=== PATIENT | female | born 1940 | race Caucasian/White ===

== ENCOUNTER 2019-07-13 12:00 | Outpatient (CLI) | payer MEDICARE, OTHER, SELFPAY ==
--- NOTE | ~2019-07-13 | US_ITS ---
US venous doppler [facility] DATE: 07/13/2019 12:50 INDICATION: Right lower leg pain TECHNIQUE: Real-time and color flow imaging and Doppler analysis of the veins of both lower extremiti es COMPARISON: None FINDINGS: The greater saphenous veins are patent. There is spontaneous and phasic flow and normal aug mentation and color flow signal and normal compression of the deep veins of both lower extremities. IMPRESSION: Negative; no evidence of deep venous thrombosis Reviewed, dictated and finalized at Location A. Reviewed, dictated and finalized at location B.
--- NOTE | ~2019-07-13 | CT_ITS ---
EXAMINATION: CTA chest PE protocol EXAM DATE: 07/13/2019 17:56 INDICATION: Tachycardia, right lower leg pain. TECHNIQUE: Spiral CTA of the chest (pulmonary arteries) was performed with 100 cc Omnipaque 350 intr avenous contrast injection. Images were acquired during the pulmonary arterial phase. Coronal maxi mum intensity projection 3D-reconstructions were created by the technologist on dedicated workstation . Axial, coronal and sagittal reformatted images were reviewed. The dose-length product (DLP) for t his examination was 837.43 mGy-cm. The exposure was tailored according to patient size (auto mA exp osure control), and iterative reconstruction (ASIR) was used as additional dose reduction technique. There is no prior study for comparison. FINDINGS: Pulmonary arteries are well opacified and without intraluminal filling defects. No thora cic aortic dissection. The lungs are clear. There are no pleural or pericardial effusions. Trach eobronchial tree is patent. There is no mediastinal, hilar or axillary lymphadenopathy. There is no pneumothorax. Heart normal in size. There is mild coronary arterial calcification, arterial sc lerosis. There is a cystic pancreatic tail mass measuring 1.6 cm. No definite enhancing solid component. The d ifferential diagnosis includes intraductal papillary mucinous neoplasm (IPMN), mucinous cystic neopla sm (MCN), pseudocyst, and the less common serous cystadenoma and neuroendocrine tumor. There is mode rate thoracic spondylosis without osteoblastic or osteolytic lesions identified. IMPRESSION: 1. No acute cardiopulmonary findings. 2. Pancreatic tail cystic mass; six-month follow-up abdomen CT or MRI with contrast recommended. Reviewed, dictated and finalized at location A. IMPRESSION: 1. No acute cardiopulmonary findings. 2. Pancreatic tail cystic mass; six-month follow-up abdomen CT or MRI with con trast recommended.
[2019-07-13 17:43] LABS: Estimated Glomerular Filt Rate > 60
== END 2019-07-13 12:01 | disposition home or self-care (01) ==
PROVIDERS: Visit Provider Student in an Organized Health Care Education/Training Program
DX: M79.661 Pain in right lower leg (principal); R00.0 Tachycardia, unspecified; Z92.89 Personal history of other medical treatment; K86.2 Cyst of pancreas
CPT/HCPCS: 36415; 71275; 93970; Q9967

== ENCOUNTER 2019-07-17 08:59 | Outpatient (CLI) | payer MEDICARE, OTHER, SELFPAY ==
[2019-07-20 10:48] LABS: Metanephrine, Free 45 pg/mL (<=57); Normetanephrine, Free 121 pg/mL (<=148); Total, Free (MN + NMN) 166 pg/mL (<=205)
== END 2019-07-17 09:00 | disposition home or self-care (01) ==
LOC: ANHLAB 09:15
PROVIDERS: Visit Provider Student in an Organized Health Care Education/Training Program
DX: R23.2 Flushing (principal); R00.0 Tachycardia, unspecified
CPT/HCPCS: 36415; 83835; 84443

== ENCOUNTER 2019-08-24 08:52 | Outpatient (CLI) | payer MEDICARE, OTHER, SELFPAY ==
--- NOTE | ~2019-08-24 | CT_ITS ---
EXAMINATION: CT abdomen pelvis w con INDICATION: Hematuria TECHNIQUE: Computed tomographic images of the abdomen and pelvis were obtained after the administrati on of 100 cc of Omnipaque 350 intravenous contrast. The dose-length product (DLP) was 1436.33 mGy-cm. Automated exposure control and iterative reconstruction technique were employed. COMPARISON: Chest CT, 07/13/2019 FINDINGS: The lung bases are clear. The heart size is normal. Punctate calcifications in an otherwise normal spleen likely represent healed granulomatous disease. There is a 1.8 x 1.2 cm cystic lesion i n the tail of the pancreas. The liver, gallbladder, and adrenal glands are normal. The right kidney is unremarkable. There is a 1.6 cm low-density lesion in the left kidney lower pole. No stones are id entified in the kidneys, ureters, or bladder. There is no hydronephrosis or hydroureter. No pathologi kaylan enlarged abdominal or pelvic lymph nodes are identified. There is no free intraperitoneal gas o r evidence of bowel obstruction. There is a surgical staple line at the rectosigmoid junction. There is a fat-containing periumbilical hernia. A moderate volume of colonic stool is present. There are ch anges of anterior and posterior fusion procedure in the lumbar spine. Moderate to severe thoracolumba r spondylosis is present. IMPRESSION: 1. Low density lesion in the left kidney lower pole, likely a complicated cyst. Recommend follow-up C T or MRI without and with contrast in six months. 2. Stable cystic lesion in the tail of pancreas, follow-up CT or MRI in six months is recommended. Of note, both of these lesions can be followed up with the same CT or MRI in six months. Reviewed, dictated and finalized at location A. IMPRESSION: 1. Low density lesion in the left kidney lower pole, likely a complicated cyst. Recommend follow-up CT or MRI without and with contrast in six months. 2. Stable cystic lesion in the tail of pancreas, follow-up CT or MRI in six mon ths is recommended. Of note, both of these lesions can be followed up with the same CT or MRI in six months.
[2019-08-24 09:36] LABS: Estimated Glomerular Filt Rate > 60
== END 2019-08-24 08:53 | disposition home or self-care (01) ==
PROVIDERS: Visit Provider Student in an Organized Health Care Education/Training Program
DX: R31.9 Hematuria, unspecified (principal); R93.422 Abnormal radiologic findings on diagnostic imaging of left kidney; R93.3 Abnormal findings on diagnostic imaging of other parts of digestive tract
CPT/HCPCS: 36415; 74177; Q9967

== ENCOUNTER 2020-01-04 09:05 | Outpatient (CLI) | payer MEDICARE, OTHER, SELFPAY ==
--- NOTE | ~2020-01-04 | MR_ITS ---
EXAMINATION: MR lumbar spine wo/w con EXAM DATE: 01/04/2020 11:18 INDICATION: Low back pain. Spondylosis. History of surgery. Difficulty walking. TECHNIQUE: Multi-sequential, multiplanar MR images of the lumbar spine were obtained without contrast . Sagittal T1, T2, T2 fat saturation images. Axial T2 weighted images. Axial T1 weighted sequence. Patient was then injected with 20 mL Multihance intravenous contrast and reimaged. Postcontrast axi al and sagittal T1-weighted fat saturation sequences were obtained. FINDINGS: There is posterior and interbody fusion at L4-5, probably with left hemilaminotomy at that level. L4 laminotomies. Mild lower thoracic levoscoliosis, lumbar dextroscoliosis. There is moderate to severe disc disease from T12 through L3 and at L5-S1, moderate at L4-5. There is 5 mm anterolisthe sis L5 on S1 without spondylolysis suspected. Scattered vertebral body hemangiomata. The conus medull dontrell terminates at the L1/2 level and has normal signal intensity and morphology. Paraspinal soft ti ssue is unremarkable. There are no areas of abnormal enhancement on the post contrast images. Level by level evaluation: T12-L1: There is a mild to moderate diffuse disc bulge. Facet arthropathy: Mild to moderate. Neural foraminal stenosis: Moderate right. Central canal stenosis: Mild. L1-L2: There is a mild to moderate diffuse disc bulge. Facet arthropathy: Mild to moderate. Neural foraminal stenosis: Moderate right, mild left. Central canal stenosis: Mild. L2-L3: There is a moderate diffuse disc bulge. Facet arthropathy: Moderate. Neural foraminal stenosis: Moderate left, mild to moderate right. Central canal stenosis: Moderate. L3-L4: This level is fused. Facet arthropathy: Poorly visualized. Neural foraminal stenosis: Mild left. Central canal stenosis: No stenosis. L4-L5: There is a mild diffuse disc bulge. Facet arthropathy: Mild. Neural foraminal stenosis: No stenosis. Central canal stenosis: No stenosis. L5-S1: There is a mild to moderate diffuse disc bulge. Facet arthropathy: Severe left, moderate right. Neural foraminal stenosis: Moderate bilateral. Central canal stenosis: Mild. IMPRESSION: 1. Posterior mid lumbar surgical changes. 2. Moderate to severe disc disease. 3. Moderate multilevel neural foraminal stenosis. 4. Mild scoliosis. Reviewed, dictated and finalized at location B.
[2020-01-04 11:52] LABS: Estimated Glomerular Filt Rate > 60
== END 2020-01-04 09:06 | disposition home or self-care (01) ==
PROVIDERS: Visit Provider Nurse Practitioner Family
DX: M54.5 Low back pain (principal); M51.36 Other intervertebral disc degeneration, lumbar region; Z98.890 Other specified postprocedural states; M48.061 Spinal stenosis, lumbar region without neurogenic claudication; M41.86 Other forms of scoliosis, lumbar region
CPT/HCPCS: 72158; A9577

== ENCOUNTER 2020-09-20 08:20 | Outpatient (RCR) | payer MEDICARE, SELFPAY ==
--- NOTE | 2020-09-20 09:51 | PCPTNOTE ---
Patient:Karen Duong Date of :1940 Wheelchair seating assessment Thank you for referring Karen Duong to [facility] for wheelchair assessment for power wheelchair. The patient has been evaluated for wheelchair seating and recommendations have been made. Assessment completed with Messi from [facility]. The findings have been scanned into the patient's EMR. Please review, sign, date and return this recognition of care provided. I agree with and certify that the following plan for DME equipment is medically necessary. doctor signature date
== END 2020-09-20 13:43 | disposition home or self-care (01) ==
LOC: ANHPT 08:20
PROVIDERS: Visit Provider Student in an Organized Health Care Education/Training Program
DX: M54.16 Radiculopathy, lumbar region (principal); M16.0 Bilateral primary osteoarthritis of hip; M17.0 Bilateral primary osteoarthritis of knee; M25.571 Pain in right ankle and joints of right foot; M25.519 Pain in unspecified shoulder; Z74.09 Other reduced mobility
CPT/HCPCS: 97163

== ENCOUNTER 2020-10-10 07:58 | Outpatient (CLI) | payer MEDICARE, SELFPAY | END 2020-10-10 07:59 | disposition home or self-care (01) | LOC: ANHAUDIO 08:00 | PROVIDERS: Visit Provider Student in an Organized Health Care Education/Training Program | DX: H90.3 Sensorineural hearing loss, bilateral (principal) | CPT/HCPCS: 92557; 92567 ==

== ENCOUNTER 2020-10-10 09:23 | Outpatient (CLI) | payer MEDICARE, SELFPAY ==
[2020-10-10 12:10] LABS: Thyroid Stimulating Hormone Reflex 0.303 uIU/mL (0.465-4.68)
[2020-10-10 12:40] LABS: Free T4 Free Thyroxine Reflex 0.84 ng/dL (0.78-2.19)
== END 2020-10-10 09:24 | disposition home or self-care (01) ==
PROVIDERS: Visit Provider Student in an Organized Health Care Education/Training Program
DX: R79.89 Other specified abnormal findings of blood chemistry (principal); E78.2 Mixed hyperlipidemia
CPT/HCPCS: 36415; 84439; 84443; 84480; 92557; 92567

== ENCOUNTER 2020-12-29 09:36 | Outpatient (CLI) | payer MEDICARE, SELFPAY ==
[2020-12-29 17:15] LABS: Free T4 Free Thyroxine 0.86 ng/mL (0.78-2.19)
[2020-12-29 17:39] LABS: Thyroid Stimulating Hormone 0.432 uIU/mL (0.465-4.680); Total Triiodothyronine (T3) 1.28 NG/ML (0.97-1.69)
[2020-12-31 20:00] LABS: Thyrotropin Receptor Antibody <1.00 IU/L (<=2.00)
[2021-01-02 04:35] LABS: Thyroid Peroxidase Antibodies <1 IU/mL (<9)
== END 2020-12-29 09:37 | disposition home or self-care (01) ==
LOC: ANHWCLAB 09:41
PROVIDERS: Visit Provider Internal Medicine Endocrinology, Diabetes & Metabolism
DX: R79.89 Other specified abnormal findings of blood chemistry (principal); E11.9 Type 2 diabetes mellitus without complications
CPT/HCPCS: 36415; 83519; 84439; 84443; 84480; 86376

== ENCOUNTER 2021-01-18 13:02 | Outpatient (CLI) | payer MEDICARE, SELFPAY ==
--- NOTE | ~2021-01-18 | US_ITS ---
EXAMINATION: US thyroid DATE: 01/18/2021 13:54 INDICATION: Other specified abnormal findings of blood chemistry. Low thyroid stimulating hormone. TECHNIQUE: Multiple ultrasound images of the thyroid were obtained. COMPARISON: None. FINDINGS: The right thyroid lobe measures 3.5 x 1.4 x 1.8 cm. The left thyroid lobe measures 3.7 x 1.9 x 1.5 c m. In the right thyroid lobe, there is a 10 mm mixed cystic and solid, isoechoic, [id number]-bykw-[id number] no dule with lobular margin without echogenic foci (TI-RADS TR4). In the right thyroid lobe, there is a 9 mm solid, hypoechoic, zpvpi-[id number]-[id number] nodule with ill-defined margin without echogenic foci (TR4). In the left thyroid lobe, there is a 14 mm mixed cystic and solid, isoechoic, kaskp-ocap-aeeo nodule with ill-defined margin without echogenic foci (TR2). IMPRESSION: 1. Small thyroid nodules. Consider thyroid ultrasound in one year. Reviewed, dictated and finalized at location A.
== END 2021-01-18 13:03 | disposition home or self-care (01) ==
LOC: ANHIMG 13:08
PROVIDERS: Visit Provider Internal Medicine Endocrinology, Diabetes & Metabolism
DX: R79.89 Other specified abnormal findings of blood chemistry (principal); E04.1 Nontoxic single thyroid nodule
CPT/HCPCS: 76536

== ENCOUNTER 2021-02-15 11:53 | Outpatient (CLI) | payer MEDICARE, SELFPAY ==
[2021-02-15 18:00] LABS: Free T4 Free Thyroxine 0.75 ng/mL (0.78-2.19)
[2021-02-15 18:14] LABS: Total Triiodothyronine (T3) 1.37 NG/ML (0.97-1.69)
[2021-02-15 20:08] LABS: Alanine Aminotransferase 31 U/L (4-35); Albumin Level 4.5 g/dL (3.5-5.1); Alkaline Phosphatase 75 U/L (38-126); Anion Gap 10 mmol/L (8-16); Aspartate Amino Transferase 31 U/L (14-36); Bilirubin,Total 0.6 mg/dL (0.2-1.3); Blood Urea Nitrogen 24 mg/dL (7-17); Calcium 10.2 mg/dL (8.4-10.2); Carbon Dioxide 23 mmol/L (22-30); Chloride 105 mmol/L (98-107); Estimated Glomerular Filt Rate > 60; Glucose 123 mg/dL (65-110); Sodium 138 mmol/L (137-145)
== END 2021-02-15 11:54 | disposition home or self-care (01) ==
PROVIDERS: Nurse Practitioner Family; Visit Provider Internal Medicine Endocrinology, Diabetes & Metabolism
DX: E11.9 Type 2 diabetes mellitus without complications (principal); R79.89 Other specified abnormal findings of blood chemistry; Z79.899 Other long term (current) drug therapy
CPT/HCPCS: 36415; 80053; 84439; 84443; 84480

== ENCOUNTER → 2021-05-26 10:54 | Outpatient (CLI) | payer MEDICARE, SELFPAY ==
--- NOTE | ~2021-05-26 | CT_ITS ---
EXAMINATION: CT abdomen pelvis wo/w con DATE: 05/26/2021 11:42 INDICATION: Right lower quadrant abdominal pain, loose stools TECHNIQUE: Computed tomography (CT) of the abdomen and pelvis was performed without and subsequently with 100 cc Omnipaque 350 intravenous contrast. Automated exposure control and iterative reconstructi on technique were employed. Exam dose: 1612.31 mGy-cm total exam DLP. COMPARISON: 08/24/2019 CT abdomen pelvis FINDINGS: Lingular calcified pulmonary granuloma and calcified splenic granulomas, consistent with ol d granulomatous disease. The lung bases are clear of infiltrate or consolidation. Normal heart size. No pericardial or pleural effusion. No hepatic, splenic or adrenal space-occupying mass lesion. Stable 1.2 x 1.6 cm pancreatic tail cystic lesion since 08/24/2019. No other pancreatic mass lesion or pancreatic calcification or ductal dilatation. The gallbladder is present. No bile duct dilatation. 1.3 cm lower pole left renal cyst. The kidneys are otherwise unremarkable, without evidence of urinar y tract calculus or hydroureteronephrosis. Status post hysterectomy. Normal caliber of the abdominal aorta. No intraperitoneal or retroperitoneal or pelvic mass lesion or adenopathy or ascites. Small sliding hiatal hernia. No evidence of appendicitis. There is a suture line at the distal sigmoid colon. No bowel obstruction or intraperitoneal free air. Multilocular umbilical/right periumbilical fat-containing hernia measuring up to approximately 5.5 cm overall transverse dimension. Diffuse idiopathic skeletal hyperostosis of the lower thoracic spine. There is lumbar spine surgical fusion including posterior pedicles and rods at L3-4 and intervertebra l body fusion at L3-4 and L4-5. There is severe degenerative disc disease in the lower thoracic and throughout the lumbar spine. Ther e is grade 1 anterolisthesis at L5-S1. IMPRESSION: Stable 1.2 x 1.6 cm pancreatic tail cystic lesion since 08/24/2019; consider CT follow-up in 1 year 1.3 cm lower pole left renal cyst, also stable Suture line at distal sigmoid colon; no bowel obstruction Reviewed, dictated and finalized at Location A. Reviewed, dictated and finalized at location A. 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
[2021-05-26 11:25] LABS: Estimated Glomerular Filt Rate > 60
== END ==
PROVIDERS: PCP Student in an Organized Health Care Education/Training Program; Visit Provider Student in an Organized Health Care Education/Training Program
DX: N28.1 Cyst of kidney, acquired (principal); R10.31 Right lower quadrant pain; K86.2 Cyst of pancreas
CPT/HCPCS: 74178; Q9967

== ENCOUNTER 2021-07-14 11:13 | Outpatient (CLI) | payer MEDICARE, SELFPAY | END 2021-07-14 11:14 | disposition home or self-care (01) | LOC: ANHLAB 11:17 | PROVIDERS: PCP Student in an Organized Health Care Education/Training Program; Visit Provider Internal Medicine | DX: E05.90 Thyrotoxicosis, unspecified without thyrotoxic crisis or storm (principal) | CPT/HCPCS: 36415; 84443 ==

== ENCOUNTER 2021-11-06 13:44 | Outpatient (CLI) | payer MEDICARE, SELFPAY ==
[2021-11-06 16:35] LABS: Anion Gap 9 mmol/L (8-16); Blood Urea Nitrogen 22 mg/dL (7-17); Calcium 10.2 mg/dL (8.4-10.2); Carbon Dioxide 27 mmol/L (22-30); Chloride 101 mmol/L (98-107); Estimated Glomerular Filt Rate > 60; Glucose 104 mg/dL (65-110); HDL Direct 67 mg/dL; Potassium 4.6 mmol/L (3.4-5.0); Sodium 137 mmol/L (137-145)
[2021-11-06 16:46] LABS: LDL Cholesterol Direct 81 mg/dL
[2021-11-06 17:06] LABS: Hemoglobin A1C 6.1 % (<5.7)
[2021-11-06 17:49] LABS: Creatinine Urine 52.8 mg/dL
[2021-11-06 17:59] LABS: Free T4 Free Thyroxine 0.75 ng/mL (0.78-2.19)
[2021-11-06 18:11] LABS: MALB Creatinine Ratio < 11.4 mg/g (0-30); Microalbumin Urine Random < 6.0 mg/L (0-16.7)
== END 2021-11-06 13:45 | disposition home or self-care (01) ==
LOC: ANHWCLAB 13:49
PROVIDERS: PCP Student in an Organized Health Care Education/Training Program; Referring Provider Internal Medicine Endocrinology, Diabetes & Metabolism; Visit Provider Internal Medicine Endocrinology, Diabetes & Metabolism
DX: E04.1 Nontoxic single thyroid nodule (principal); Z51.81 Encounter for therapeutic drug level monitoring; Z79.899 Other long term (current) drug therapy
CPT/HCPCS: 36415; 80048; 82043; 83036; 83718; 83721; 84439; 84443

== ENCOUNTER 2021-12-29 13:18 | Outpatient (CLI) | payer MEDICARE, SELFPAY ==
--- NOTE | ~2021-12-29 | US_ITS ---
EXAMINATION: US thyroid DATE: 12/29/2021 14:15 INDICATION: Nontoxic single thyroid nodule. TECHNIQUE: Multiple ultrasound images of the thyroid were obtained. COMPARISON: Thyroid ultrasound 01/18/2021 FINDINGS: The right thyroid lobe measures 2.1 x 4.0 x 1.8 cm. The left thyroid lobe measures 1.7 x 3.5 x 1.9 c m. The thyroid is diffusely heterogeneous. In the right thyroid lobe, there is a 1.4 cm mixed cystic and solid, hypoechoic, wider than tall nodule with smooth margin without echogenic foci (TI-RADS TR3 ). In the right thyroid lobe, there is a 10 mm solid, hypoechoic, isoechoic, wider than tall nodule w ith ill-defined margin without echogenic foci (TR4). In the left thyroid lobe, there is a 11 mm mixed cystic and solid, hypoechoic, wider than tall nodule with ill-defined margin and peripheral calcific ations (TR4). There are multiple subcentimeter nodules in the thyroid. IMPRESSION: 1. Multinodular goiter. Thyroid ultrasound is recommended in one year. Reviewed, dictated and finalized at location A.
== END 2021-12-29 13:19 | disposition home or self-care (01) ==
LOC: ANHIMG 13:20
PROVIDERS: PCP Student in an Organized Health Care Education/Training Program; Visit Provider Internal Medicine Endocrinology, Diabetes & Metabolism
DX: E04.2 Nontoxic multinodular goiter (principal)
CPT/HCPCS: 76536

== ENCOUNTER 2022-07-11 10:55 | Outpatient (CLI) | payer MEDICARE, SELFPAY ==
--- NOTE | ~2022-07-11 | US_ITS ---
EXAMINATION: US carotid duplex BI DATE: 07/11/2022 12:05 INDICATION: Carotid stenosis bilateral. TECHNIQUE: Grayscale, color Doppler, and pulsed Doppler images of the cervical carotid arteries were obtained. The degree of vessel stenosis is placed in one of the following categories: normal, <50%, 5 0-69%, >=70% but less than near-occlusion, near-occlusion, or total occlusion. Note that percent sten osis relative to normal distal artery lumen diameter is indirectly measured from velocity measurement s as described by Durga, et al. Radiology 2003; 229:340-346. COMPARISON: None. FINDINGS: RIGHT: The right common carotid artery (CCA) peak systolic velocity (PSV) is 83 cm/s. The right internal car otid artery (ICA) PSV is 77 cm/s. The right ICA end-diastolic velocity (EDV) is 24 cm/s. The right IC A/CCA PSV ratio is 0.9. Grayscale and color Doppler images yield an estimate of <50% diameter reducti on from plaque in the ICA. There is antegrade flow in the right vertebral artery. LEFT: The left CCA PSV is 81 cm/s. The left ICA PSV is 66 cm/s. The left ICA EDV is 22 cm/s. The left ICA/C CA PSV ratio is 0.8. Grayscale and color Doppler images yield an estimate of <50% diameter reduction from plaque in the ICA. There is antegrade flow in the left vertebral artery. IMPRESSION: 1. <50% stenosis in the right internal carotid artery. 2. <50% stenosis in the left internal carotid artery. Reviewed, dictated and finalized at location A.
== END 2022-07-11 10:56 | disposition home or self-care (01) ==
PROVIDERS: PCP Student in an Organized Health Care Education/Training Program; Visit Provider Student in an Organized Health Care Education/Training Program
DX: I65.23 Occlusion and stenosis of bilateral carotid arteries (principal)
CPT/HCPCS: 93880

== ENCOUNTER 2022-08-06 13:37 | Outpatient (CLI) | payer MEDICARE, SELFPAY ==
[2022-08-06 17:32] LABS: Free T4 Free Thyroxine 0.78 ng/mL (0.78-2.19)
== END 2022-08-06 13:38 | disposition home or self-care (01) ==
LOC: ANHWCLAB 13:39
PROVIDERS: PCP Student in an Organized Health Care Education/Training Program; Visit Provider Internal Medicine Endocrinology, Diabetes & Metabolism
DX: R73.03 Prediabetes (principal); E05.90 Thyrotoxicosis, unspecified without thyrotoxic crisis or storm; E04.1 Nontoxic single thyroid nodule
CPT/HCPCS: 36415; 84439; 84443

== ENCOUNTER 2023-02-07 09:08 | Outpatient (CLI) | payer MEDICARE, SELFPAY ==
--- NOTE | ~2023-02-07 | US_ITS ---
EXAMINATION: US thyroid DATE: 02/07/2023 09:44 INDICATION: Nontoxic single thyroid nodule. TECHNIQUE: Multiple ultrasound images of the thyroid were obtained. COMPARISON: Ultrasound 12/29/2021, 01/18/2021 FINDINGS: The right thyroid lobe measures 4.2 x 1.8 x 1.6 cm. The left thyroid lobe measures 4.1 x 1.7 x 1.8 c m. The thyroid demonstrates diffusely heterogeneous echogenicity and increased vascularity. In the r ight thyroid lobe, there is a 1.7 cm mixed cystic and solid, isoechoic, wider than tall nodule with i ll-defined margin without echogenic foci (TI-RADS TR2). In the left thyroid lobe, there is a 1.5 cm m ixed cystic and solid, isoechoic, wider than tall nodule with ill-defined margin without echogenic fo ci (TR2). IMPRESSION: 1. Thyroid nodules, likely not clinically significant. No follow-up is needed. 2. 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 Reviewed, dictated and finalized at location E.
== END 2023-02-07 09:09 | disposition home or self-care (01) ==
LOC: ANHIMG 09:11
PROVIDERS: PCP Student in an Organized Health Care Education/Training Program; Visit Provider Internal Medicine Endocrinology, Diabetes & Metabolism
DX: E04.2 Nontoxic multinodular goiter (principal); R73.03 Prediabetes; Z78.0 Asymptomatic menopausal state
CPT/HCPCS: 76536

== ENCOUNTER 2023-12-26 07:48 | Outpatient (CLI) | payer MEDICARE, SELFPAY ==
[2024-01-15 12:46] VITALS: BMI 38.9
--- NOTE | 2024-01-15 12:46 | WPDSLEEPSTUD ---
Sleep Study Date of Study: 12/26/23 Ordering Provider: Ulices Cuadra DO Interpreting Physician: Margarette Bourgeois DO Sleep Study Type: Polysomnogram Height: 1.6 m Weight: 99.79 kg Body Mass Index: 38.9 Neck Circumference (inches): 16 [place]: 0 Reason for Sleep Study Leg movements during sleep Sleep History The patient is an 83-year-old female with restless leg syndrome, tremors, hypertension, hyperthyroidism, depression, chronic pain and elevated heart rate that had a sleep study ordered by her primary care physician due to worsening restless legs syndrome. The patient occasionally awakens from sleep short of breath. She frequently has trouble sleeping when she has a cold. She occasionally wakes up gasping for air throughout the night. She occasionally has heart palpitations or irregular heartbeats during the night. She denies falling asleep during the day. She frequently notices parts of her body jerk. She frequently kicks during the night. She occasionally has leg pain during the night. She constantly is bothered by pain during the day and occasionally awakened by pain during the night. She constantly wakes up feeling stiff in the morning. She occasionally wakes up with sore or achy muscles. She constantly wakes up due to pain in the neck, spine or other joints. She goes to bed between 9-10 p.m. on both weekdays and weekends. It takes her 2-3 hours to fall asleep. She wakes up 1-2 times throughout the night and the amount of time it takes for her to fall back asleep is variable. She wakes up at 5:00 a.m. on both weekdays and weekends. She typically gets 5-6 hours of sleep per night. She will stay in bed for 45 minutes after waking up in the morning. She denies consuming any caffeinated beverages within 2 hours of bedtime. She denies engaging in physical exercise before bedtime. She denies reading before falling asleep. She will occasionally watch television before falling asleep. She denies taking naps in the afternoon or the evening. She denies consuming any caffeinated beverages during the day. She denies tobacco, alcohol and recreational drug use. [facility] Past Medical History Medical History (Updated 01/15/24 @ 12:58 by Margarette Bourgeois DO) Allergies Arthritis Breast CA Cardiac arrest Degenerative joint disease (DJD) of lumbar spine (~2019) Diabetes Diabetes FH: prostate cancer Hammer toe Hypertension Hypertension Inflammatory arthritis Low TSH level Muscle spasm Postmenopausal Prediabetes Restless leg syndrome Subclinical hyperthyroidism Thyroid disease Surgical History Surgical History H/O breast reconstruction H/O lumpectomy H/O total hysterectomy History of colon surgery History of lumbar fusion History of total left knee replacement (TKR) History of total right knee replacement Presence of artificial knee joint, bilateral S/P left rotator cuff repair Status post laser cataract surgery of both eyes Family History Family History Mother Heart disease Thyroid disease Arthritis Father Heart disease Cancer Grandparent Cancer Sibling Degenerative disc disease Arthritis Other Depression Hypertension Social History Social History Smoking status: Never smoker Alcohol intake: never Substance use: never Lack of Transportation: No Lack of Food: Never True Current Housing: I Have Housing Concerned About Future Housing: No Difficulty Paying Gas/Electric Bills: No Difficulty Paying for Meds: No Currently Unemployed: No Education: High School Diploma/GED Difficulty w/ Childcare or Family Care: No Occupation/Education: retired Gender identity (if verbalized by the patient): Female Medications Home Medications Medication Instructions Recorded Con
== END 2023-12-27 06:50 | disposition home or self-care (01) ==
LOC: ANHCSM 07:53
PROVIDERS: PCP Student in an Organized Health Care Education/Training Program; Visit Provider Anesthesiology
DX: G25.81 Restless legs syndrome (principal); G47.61 Periodic limb movement disorder
CPT/HCPCS: 95810

== ENCOUNTER 2024-10-07 10:37 | Outpatient (CLI) | payer MEDICARE, SELFPAY ==
--- NOTE | ~2024-10-07 | XR_ITS ---
XR shoulder LT min 2V Ordering provider: Melida Currie, MINE ENGINEERING MANAGER-C History: . Shoulder pain, L . Comparison: None. FINDINGS: BONES: No acute fracture or dislocation. Irregularity in the area of the greater tuberosity suggestiv e of degenerative changes No. JOINT SPACES: The acromioclavicular joint shows osteoarthritic changes. The glenohumeral joint is nor mal. Osteophyte formation is seen in the acromion process with impingement on the humeral head. SOFT TISSUES: Normal. IMPRESSION: No acute osseous abnormality left shoulder. Osteoarthritic changes of the acromioclavicular joint. Prominent bone formation in the area of the acromion process with impingement which may indicate rota tor cuff tear. Clinical correlation advised. Degenerative changes in the greater tuberosity. Reviewed, dictated and finalized at location A. IMPRESSION: No acute osseous abnormality left shoulder. Osteoarthritic changes of the acromioclavicular joint. Prominent bone formation in the area of the acromion process with impingement w hich may indicate rotator cuff tear. Clinical correlation advised. Degenerative changes in the greater tuberosity.
== END 2024-10-07 10:38 | disposition home or self-care (01) ==
PROVIDERS: PCP Nurse Practitioner Family; Visit Provider Nurse Practitioner Family
DX: M19.012 Primary osteoarthritis, left shoulder (principal); M75.42 Impingement syndrome of left shoulder
CPT/HCPCS: 73030

== ENCOUNTER 2024-12-25 13:47 | Emergency (ER) | payer MEDICARE, SELFPAY ==
[2024-12-25] VITALS (9 sets, daily range): BP systolic 142–151; BP diastolic 78–133; PULSE 83–93; RESP 18–20; TEMP 37.1; O2SAT 95–100
--- NOTE | ~2024-12-25 | CT_ITS ---
Karen Duong EXAMINATION: CT abdomen pelvis w con COMPARISON: None HISTORY: lower abd/rectal pain, constipatoin TECHNIQUE: Axial images were obtained through the abdomen, pelvis post administration of IV contrast. Oral contrast was also administered. Coronal reconstruction images were obtained from the axial views. CT scan performed using dose optimization techniques including the following automated exposure control; adjustment of mA and/or kV; use of iterative reconstruction technique. Automatic exposure control was used to reduce radiation dose. Permanent radiation dose record is archived to PACS. FINDINGS: CT abdomen: LUNG BASES: Lung bases demonstrate chronic changes with scattered calcified granulomas. LIVER: Mild hepatic steatosis. The portal vein is patent. No intrahepatic biliary duct dilatation. SPLEEN: Punctate calcified splenic granulomas.. KIDNEYS: Right Kidney: Unremarkable. No calculi. No hydronephrosis. Left Kidney: Left kidney midpole simple cyst 1 x 1 cm. ADRENAL GLANDS: Nonspecific thickening of the adrenal glands bilaterally. PANCREAS: Pancreatic body lesion 1 x 1 cm incompletely characterized, outpatient contrast-enhanced MRI is recommended. Within the uncinate process of the pancreas there is suggestion of a subcentimeter cystic lesion. GALLBLADDER/BILIARY: Unremarkable. No biliary dilatation. STOMACH AND ESOPHAGUS: The stomach is decompressed. BOWEL/MESENTERY: The rectum is dilated measuring 8 cm with fecal content and pericolonic stranding. The remaining large bowel demonstrate sequelae of previous surgery with moderate fecal content but no additional areas of colitis or diverticulitis. Appendix not identified. Mesentery normal. Small bowel normal. ADENOPATHY/RETROPERITONEUM: No lymphadenopathy. AORTA/VASCULATURE: Normal caliber aorta. FREE FLUID OR FREE AIR: No free fluid.. CT pelvis: SOLID ORGANS/REPRODUCTIVE: Post hysterectomy. BLADDER: Bladder distended. OSSEOUS STRUCTURES: No sclerotic or lytic lesions. Postsurgical changes noted of the spine. OVERLYING SOFT TISSUES: There is a fat-containing ventral hernia to the right of midline below the umbilicus measuring 2 cm. IMPRESSION: 1. Probable fecal impaction with proctitis. Incidental findings above Reviewed, dictated and finalized at location A.
--- OUTSIDE RECORDS SUMMARY | 2024-12-25 14:35 | XMS_ITS | Clinical Summary ---
Author Organization [facility] [address] Address [address] [place] [address] Care Team Providers Care Press Set Up Person Name Role Phone Blake Cuadra Primary Care Provide r Allergies Active Allergy Reactions Criticality Noted Date Comments Amlodipine Rash,Swelling Medium 05/20/2009 Meperidine Hives Medium 02/11/2009 Medications aspirin 81 mg chewable tablet Take 1 tablet (81 mg total) by mouth daily Active blood glucose diagnostic strip For accuchek Check daily. 8 Active blood-glucose meter misc One time daily. 8 Active ergocalciferol (VITAMIN D) 50,000 unit capsule Take 1 capsule (50,000 Units total) by mouth every 30 (thirty) days 5 Active losartan (COZAAR) 100 mg tablet 1 tablet (100 mg total) daily 9 Active lovastatin (MEVACOR) 20 mg tablet 1 tablet (20 mg total) daily 9 Active tiZANidine (ZANAFLEX) 2 mg tablet 1 tablet (2 mg total) as needed 9 Active magnesium salicylate-caff eine 162.5-50 mg tablet Take by mouth daily Active DULoxetine DR (CYMBALTA) 30 mg capsule Take 1 capsule (30 mg total) by mouth 2 (two) times a day Active rOPINIRole (REQUIP) 0.25 mg tablet Take 1 mg by mouth nightly Active polyethylene glycol (MIRALAX) 17 gram packetIndicatio ns:constipation Take 1 packet (17 g total) by mouth daily Active acetaminophen (TYLENOL) 500 mg tablet Take 1 tablet (500 mg total) by mouth every 6 (six) hours as needed for pain 3 tablets daily sometimes 2 Active vitamin B complex capsule Take 1 capsule by mouth daily Active methIMAzole (TAPAZOLE) 5 mg tablet Take 1 tablet (5 mg total) by mouth 2 (two) times a day Take 1 tab in morning and 2 tabs in evening (skip Saturday morning) 1 Active carbidopa-levod opa CR (SINEMET CR) 25-100 mg per CR tablet Take 1 tablet by mouth 2 (two) times a day 60 tablet 11 3 Active gabapentin (NEURONTIN) 600 mg tablet Take 0.5 tablets (300 mg total) by mouth daily One at bed time 3 Active primidone (MYSOLINE) 50 mg tablet 2 at bedtime and 1 in the am 3 Active clonazePAM (KlonoPIN) 1 mg tablet Take 1 tablet 60 minutes prior to procedure. Can cause drowsiness. 4 Active predniSONE (DELTASONE) 20 mg tablet 4 Active cyanocobalamin (Vitamin B-12) 1,000 mcg tablet Take 1 tablet (1,000 mcg total) by mouth daily Active metoprolol XL (TOPROL-XL) 25 mg extended release tablet TAKE 1 TABLET(25 MG) BY MOUTH DAILY 90 tablet 2 5 Active Active Problems Problem Noted Date Diagnosed Date Atrial tachycardia 10/25/2020 Restless leg syndrome 09/01/2020 Unexplained night sweats 08/03/2019 Arthralgia of right ankle 06/18/2019 Tenosynovitis of peroneus brevis tendon 06/18/19 Rotator cuff arthropathy of right shoulder 04/23 Dystrophia unguium 04/13/2019 Pre-operative clearance 03/10/2019 Right bundle branch block 01/26/2019 Primary osteoarthritis of both hips 01/21/2019 Primary osteoarthritis of both knees 01/21/2019 S/P total knee arthroplasty, bilateral 9 Arthritis 12/25/2018 Congenital pes planus 12/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 Foot callus 12/25/2018 Osteoarthritis of ankle or foot 12/25/2018 Porokeratosis 12/25/2018 At risk for falls 12/07/2018 Type 2 diabetes mellitus wit hout complication, without long-term current use of insulin 09/04/2018 Neck pain 07/10/2018 Vitamin D deficiency 07/10/2018 Grade I diastolic dysfunction 05/29/2018 Cervical radiculopathy 05/29/2018 Hypercholesterolemia 05/07/2018 Other emphysema 05/07/2018 Pelvic relaxation disorder 11/20/2017 Pessary maintenance 09/24/2017 Obesity 03/28/2016 Obesity 03/28/2016 Non morbid obesity due to excess calories 2015 CKD (chronic kidney disease) stage 3, GFR 30-59 ml/min 11/10/2014 Abdominal pain 03/22/2014 Elevated lipase 03/22/2014 Pulmonary hypertension 03/22/2014 Volume depletion 03/22/2014 Pain in joint, shoulder region 03/05/2011 Generalized osteoarthritis of multiple sites 02/2010 Allergic reaction caused by a drug 04/12/2009 Anxiety associated with depression 04/12/2009 Hyperkalemia 04/12/2009 Hypertension 04/12/2009 Peripheral edema 04/12/2009 Surgical History Surgery Date Site/Laterality Comments TOTAL VAGINAL HYSTERECTOMY Patient states between [id number] REPLACEMENT TOTAL KNEE BILATERAL Right knee in 1997 and left knee in 2001 BREAST RECONSTRUCTION 04/15/1984 - 04/14/1985 Cyst removal each breast ROTATOR CUFF REPAIR 04/15/2001 - 04/14/2002 Left COLECTOMY PARTIAL / TOTAL 04/15/2004 - 04/14/2005 Partial/ 18 inches of colon removed BACK SURGERY 04/15/2005 - 04/14/2006 Lower back rods, screws, plates KNEE ARTHROPLASTY 04/15/2007 - 04/14/2008 Right Medical History Medical History Date Comments Hypertension Diabetes mellitus (HCC) Family History Medical History Relation Name Comments Heart attack Father Heart attack Mother Relation Name Status Comments Father (Age 69) cancer and heart attack Mother (Age 89) heart lew ck Sister Alive arth, ddd Social History Tobacco Use Types Packs/Day Years Used Date Smoking Tobacco: Never Smokeless Tobacco: Never Tobacco Cessation:Counseling Given: Not Answered Alcohol Use Standard Drinks/Week Comments Never 0 (1 standard drink = 0.6 oz pur e alcohol) AUDIT-C Answer Date Recorded Frequency of Alcohol Consumption Never 03/10/2019 Average Number of Drinks Not on file 019 Frequency of Binge Drinking Not on file 02/14 Personal Safety Answer Date Recorded Getting School Help Needed Not on file 04/05 Comments Unknown Sex and Gender Information Value Date Recorded Sex Assigned at Not on file Legal 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 Gender Identity Not on file Sexual Orientation Not on file Obstetrics History Last Filed Vital Signs Vital Sign Reading Time Taken Comments Blood Pressure 130/72 01/16/2024 10:23 AM CDT Pulse 77 01/16/2024 10:23 AM CDT Temperature - - Respiratory Rate - - Oxygen Saturation 93% 12/25/2023 8:28 AM CDT Inhaled Oxygen Concentration - - Weight 98.9 kg (218 lb) 01/16/2024 10:23 AM CDT Height 160 cm (5' 3) 01/16/2024 10:23 AM CDT Body Mass Index 38.62 01/16/2024 10:23 AM CDT Plan of Treatment Health Maintenance Due Date Last Done Comments Albumin Creatinine Ratio, Urine 1942 Depression Screening 1942 Fall Risk Assessment 1942 Hemoglobin A1C 1942 eGFR 1942 Dilated Eye Exam 1942 Foot Exam 1942 Hepatitis B Screening 1960 Well Visit 65+ 2007 Osteoporosis Screening-Bone Density Scan 01/08/2014 01/09/2012, 01/09/2012, 01/09/2012 DTaP/Tdap/Td Vaccine (2 - Td or Tdap) 04/15/2017 04/15/2007 Covid-19 Vaccine (4 - 2024-2 6 season) 2024 02/01/2021, 07/03/2020, 06/12/2020 Influenza Vaccine (#1) 2024 , 01/11/2021, 01/21/2019, Additional history exists Lipid Panel 01/14/2025 01/15/2024, 12/14, 12/25/2021, Additional history exists Pneumococcal vaccine 65+ Completed 021, 01/21/2019, 09/09/2014, Additional history exists Zoster Vaccine Completed 03/26/2021, 01/25/2021 Procedures Procedure Name Priority Date/Time Associated Diagnosis Comments LIPID PANEL Routine 09/01/2020 9:06 AM CDT from Last 3 Months or Most Recently Relevant to Health Maintenance Results * Lipid panel (09/01/2020 9:06 AM CDT) SCRIBED Cholesterol, Total 175 0 - 200 EXTERNAL LAB SCRIBED HDL 78 40 - 100 EXTERNAL LAB SCRIBED LDL 73 0 - 100 EXTERNAL LAB SCRIBED Triglycerides 120 0 - 150 EXTERNAL LAB Blood specimen (specimen) Historical Provider LAB BLOOD ORDERABLES Aida nolasco Result EXTERNAL LAB from Last 3 Months or Most Recently Relevant to Health Maintenance Insurance MEDICARE [facility] MEDICARE Care Teams Press Set Up Person Relationship Specialty Start Date End Date Blake Cuadra DO PCP - General Family Medicine 02/03/19
--- OUTSIDE RECORDS SUMMARY | 2024-12-25 14:35 | XMS_ITS | Clinical Summary ---
Author Organization [employer] Address [address] [facility] Attn: Epic Prelude ADT [place] [address] Care Team Providers Care Account Development Manager Name Role Phone Unavailable Primary Care Provider Unavailabl e Allergies Active Allergy Reactions Criticality Noted Date Comments Amlodipine Besylate Rash,Swelling Low 05/20/2009 Meperidine Hives High 02/11/2009 Medications lancets 30 gauge 1 Each by [facility].(Non-Nehemias g; Combo Route) route daily For true metrix lancing deviceDx e11.9. 50 Each 5 12/11/2017 Active polyethylene glycol 3350 (MIRALAX) 17 gram/dose Powder TAKE 1 SCOOP (17 GRAM) BY MOUTH DAILY DISSOLVE IN 8 OUNCES OF FLUID AND DRINK ENTIRE LIQUID.. 1,530 Gram 3 11/28/2017 Active blood sugar diagnostic Strip For accuchek Check daily. 50 Strip 6 01/13/2018 Active Blood-Glucose Meter One time daily. 1 Device 0 01/13/2018 Active aspirin (BREANNA CHEWABLE) 81 mg Tablet, Chewable Take 81 mg by mouth daily. 01/19/2018 Active HYDROcodone-benji taminophen (NORCO) 5-325 mg tablet Take 1 Tablet by mouth every 4 hours as needed for Pain, Moderate. Max Daily Amount: 6 Tablets 20 Tablet 0 02/09/2018 Active pantoprazole (PROTONIX) 40 mg Tablet, Delayed Release (E.C.) Take 1 Tablet (40 mg) by mouth daily. 90 Tablet 0 04/21/2018 Active lovastatin (MEVACOR) 20 mg tablet Take 1 Tablet (20 mg) by mouth daily with supper. 90 Tablet 0 04/21/2018 Active losartan (COZAAR) 100 mg tablet Take 1 Tablet (100 mg) by mouth daily. 90 Tablet 0 04/21/2018 Active clopidogreL (PLAVIX) 75 mg Tablet Take 1 Tablet (75 mg) by mouth daily. 90 Tablet 0 04/25/2018 Active pramipexole (MIRAPEX) 0.5 mg tabletIndicatio ns:RLS (restless legs syndrome),Insom evgeny due to other mental disorder,Chroni c pain syndrome Take 2 Tablets (1 mg) by mouth daily at bedtime. 180 Tablet 0 04/21/2018 Active rivaroxaban (XARELTO) 2.5 mg Tablet Take 1 Tablet (2.5 mg) by mouth 2 times daily. 180 Tablet 0 04/21/2018 Active DULoxetine (CYMBALTA) 60 mg Capsule, Delayed Release(E.C.) Take 1 Capsule (60 mg) by mouth daily. 90 Capsule 0 04/21/2018 Active carvediloL (COREG) 12.5 mg tablet Take 1 Tablet (12.5 mg) by mouth 2 times daily with meals. 180 Tablet 0 04/21/2018 Active traMADoL (ULTRAM) 50 mg tablet Take 1 Tablet (50 mg) by mouth every 6 hours as needed for Pain. 120 Tablet 0 04/14/2018 Active tiZANidine (ZANAFLEX) 2 mg TabletIndicatio ns:Muscle pain,Muscle spasm Take 1 Tablet (2 mg) by mouth every 6 hours as needed for Spasm. 360 Tablet 0 04/21/2018 Active Active Problems Problem Noted Date Diagnosed Date Pelvic relaxation disorder 11/20/2017 Pessary maintenance 09/24/2017 Obesity (BMI 35.0-39.9) without comorbidity 03/15 CKD (chronic kidney disease) stage 3, GFR 30-59 ml/min 11/10/2014 Volume depletion 03/22/2014 Pulmonary hypertension 03/22/2014 Elevated lipase 03/22/2014 Abdominal pain 03/22/2014 Pain in joint, shoulder region 03/05/2011 Generalized osteoarthritis of multiple sites 02/2010 HTN (hypertension) 04/12/2009 Peripheral edema 04/12/2009 Allergic reaction caused by a drug 04/12/2009 Hyperkalemia 04/12/2009 Anxiety associated with depression 04/12/2009 Immunizations Immunization Administration Dates Next Due (PNEUMOVAX 23)(50 YRS UP) PN EUMOCOCCAL POLYSACCHARIDE (PPV23) 0.5 ML, IM 02/01/2014 INFLUENZA VACCINE QUADRIVALENT 3 YR UP PF IM ,02/01/2014 INFLUENZA VACCINE QUADRIVALENT 6 MOS UP PF IM ,01/15/2017 Influenza Seasonal Unspecified Formulation IM Influenza Vaccine High Dose 65+ Yrs IM 5,02/28/2012 Influenza Vaccine Split 3+ Yrs PF IM 02/16/2013 Family History Medical History Relation Name Comments Heart Disease Daughter Cancer Father Heart Disease Father Healthy Maternal Grandfather Breast Cancer Maternal Grandmother Other Mother DDD Unknown Paternal Grandmother at 39 Arthritis-osteo Sister Other Sister Relation Name Status Comments Daughter Father Maternal Grandfather Maternal Grandmother Mother Paternal Grandfather Paternal Grandmother Sister Alive Social History Tobacco Use Types Packs/Day Years Used Date Smoking Tobacco: Never Smokeless Tobacco: Never Alcohol Use Standard Drinks/Week Comments No 0 (1 standard drink = 0.6 oz pur e alcohol) Comments Unknown Sex and Gender Information Value Date Recorded Sex Assigned at Not on file Legal Sex Female 4:11 PM CDT Gender Identity Not on file Sexual Orientation Not on file Last Filed Vital Signs Vital Sign Reading Time Taken Comments Blood Pressure 130/78 04/21/2018 2:08 PM AIR 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 Pulse 103 04/21/2018 2:08 PM AIR 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 Temperature 36.5 C (97.7 F) 04/21/2018 2:08 PM AIR 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 Respiratory Rate 18 03/27/2018 1:35 PM AIR 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 Oxygen Saturation - - Inhaled Oxygen Concentration - - Weight 101.5 kg (223 lb 12.8 oz) 04/21/2018 2:08 PM AIR 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 Height 160 cm (5' 3) 04/21/2018 2:08 PM AIR 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 Body Mass Index 39.64 04/21/2018 2:08 PM AIR 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 Plan of Treatment Health Maintenance Due Date Last Done Comments DTAP/TDAP/TD VACCINES (1 - Tdap) 1961 ZOSTER VACCINE (1 of 2) 1992 PNEUMOCOCCAL VACCINE 50+ YEA RS (2 of 2 - PCV) 02/01/2015 02/01/2014 OSTEOPOROSIS SCREENING 01/08/2017 2, 01/09/2012, 01/09/2012 RSV VACCINE (60+ or ) (1 - 1-dose 75+ series) 2017 INFLUENZA VACCINE (#1) 2024 8, 01/15/2017, 01/27/2016, Additional history exists Procedures Procedure Name Priority Date/Time Associated Diagnosis Comments XR DEXA BONE DENSITY AXIAL 1 OR MORE SITES Routine 01/09/2012 9:59 AM CDT Osteoporosis from Last 3 Months or Most Recently Relevant to Health Maintenance Results * XR DEXA BONE DENSITY AXIAL 1 OR MORE SITES (01/09/2012 9:59 AM CDT) Anatomical Region Laterality Modality Other Impressions 01/10/2012 1:01 PM CDT Bone mineral density lies in the normal range. No osteopenia is observed at this time. Refer to detailed summary. Narrative 01/10/2012 1:01 PM CDT Exam: XR DEXA BONE DENSITY AXIAL 1 OR MORE SITES Date/Time of Exam: Jan 09, 2012 09:59:00 AM History: OSTEOPOROSIS, UNSPECIFIED. DEXA BONE DENSITOMETRY Bone density of the proximal femur was 0.0 and Z-score of 0.5. Procedure Note Maximus Loaiza, DO - 06/15/2022 Exam: XR DEXA BONE DENSITY AXIAL 1 OR MORE SITES Date/Time of Exam: Jan 09, 2012 09:59:00 AM History: OSTEOPOROSIS, UNSPECIFIED. DEXA BONE DENSITOMETRY Bone density of the proximal femur was 0.0 and Z-score of 0.5. IMPRESSION Bone mineral density lies in the normal range. No osteopenia is observed at this time. Refer to detailed summary. Chepe Grimm MD DIAGNOSTIC IMAGING ORDERAB LES Final Result from Last 3 Months or Most Recently Relevant to Health Maintenance
--- OUTSIDE RECORDS SUMMARY | 2024-12-25 15:27 | XMS_ITS | Encounter Summary ---
Author Organization [facility] Address [address] [place] [address] Care Team Providers Care Volunteer Services Supervisor Name Role Phone Unavailable Primary Care Provider Unavailabl e Encounter Details Date Type Department Care Team (Late st Contact Info) Description 10/14/2018 Lab Requisition [facility] D[facility] [address] [place] [id number] Aimee Reynoso DO [address] [facility] [address] [place] [address] Social History Tobacco Use Types Packs/Day Years Used Date Smoking Tobacco: Never Assessed Comments Unknown Sex and Gender Information Value Date Recorded Sex Assigned at Not on file Legal Sex Female 1:40 PM 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 Gender Identity Not on file Sexual Orientation Not on file documented as of this encounter Plan of Treatment Not on file documented as of this encounter Procedures Procedure Name Priority Date/Time Associated Diagnosis Comments DERMATOPATHOLOGY Routine 10/13/2018 12:0 0 AM CDT documented in this encounter Results * DERMATOPATHOLOGY (10/13/2018 12:00 AM CDT) Case Report Dermatopathology Report Case: [id number] Authorizing Provider: Aimee Reynoso DO Collected: 10/13/2018 12:00 AM Pathologist: Cindy Badillo MD Received: 10/14/2018 06:59 AM Specimen: Skin, right upper arm 9 3:42 PM CDT DERMATOPATHOLOGY LABORATORY Final Diagnosis Specimen A. SKIN, right upper arm: VERRUCA VULGARIS WITH IMPETIGINIZED INFLAMED SERUM CRUST (B07.8) (see microscopic description) 9 3:42 PM CDT DERMATOPATHOLOGY LABORATORY at 1542 CDT Clinical History Pruritic, non-healing, papule, NMSC vs bite vs PN. 3:42 PM CDT DERMATOPATHOLOGY LABORATORY Gross Description Specimen A: Received is one formalin filled container labeled with the patient's name and designated right upper arm. The specimen consists of a shave measuring [id number]. Jar 0. 3:42 PM CDT DERMATOPATHOLOGY LABORATORY Microscopic Description Specimen A. SKIN, right upper arm: There is digitated epidermal hyperplasia, hypergranulosis, vacuolated granular layer cells, and compact hyperorthokeratosis . There is overlying inflamed serum crust containing bacteria. Additional deeper sections were obtained and reviewed. 3:42 PM CDT DERMATOPATHOLOGY LABORATORY Disclaimer An external and internal positive and negative controls are appropriate for the histochemical, immunohistochemical and immunofluorescence stain(s) in this case (if any), except where stated explicitly. The performance characteristics of the stain(s) cited in this report were developed and its performance characteristic determined by the Dermatopathology Laboratory at [facility], directed by Dr. Evelyn Mccarthy. These tests need not be, and therefore are not, approved by the [place] Food and Drug Administration. The tests are used for clinical purposes. Billing Codes Specimen Charges Stain Charges 46474 1 3:42 PM CDT DERMATOPATHOLOGY LABORATORY Embedded Images 3:42 PM CDT DERMATOPATHOLOGY LABORATORY Pathology/Cytolog y TISSUE SPECIMEN FROM SKIN / Unknown 10/13/2018 10/14/2018 6:59 AM CDT us Aimee Reynoso DO LAB - PATHOLOGY/CYTOLOGY ORDERABLES Final Result DERMATOPATHOLOGY LABORATORY [facility] - Department of Dermatology [address] [place] [address], [address] [place] [address], [facility] [phone] documented in this encounter Visit Diagnoses Not on filedocumented in this encounter
--- OUTSIDE RECORDS SUMMARY | 2024-12-25 15:27 | XMS_ITS | Clinical Summary ---
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
--- OUTSIDE RECORDS SUMMARY | 2024-12-25 15:27 | XMS_ITS | Clinical Summary ---
Author Organization [facility] Address [address] [facility] [place] [address] Care Team Providers Care Netezza Architect Name Role Phone Unavailable Primary Care Provider Unavailabl e Source Comments [facility],non-owned Affiliates and Associated Physician Practices is amultiple site organization consisting of ambulatory clinics and hospital sitesin [place], [place], [place] and [place]. This disclosure is being madepursuant to the Care Everywhere program and may not contain all information available regarding this patient. 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 Gender Identity Not on file Sexual Orientation Not on file Plan of Treatment Health Maintenance Due Date Last Done Comments BONE DENSITY TESTING 1940 MEDICARE AWV 12 MONTHS 1942 DTAP/TDAP/TD VACCINES (1 - Tdap) 1961 PNEUMOCOCCAL VACCINE 50+ (1 of 1 - PCV) 1992 ZOSTER VACCINE (1 of 2) 1992 Respiratory Syncytial Virus (RSV) Vaccine Pt: or over 60 yrs (1 - 1-dose 75+ series) 2017 DEPRESSION SCREENING 04/15/2024 COVID-19 VACCINE ( - 2023-2 5 season) 2024 INFLUENZA VACCINE (#1) 2024 HEPATITIS B VACCINE Aged Out No longe r eligible based on patient's age to complete this topic HIB VACCINE Aged Out No longer eligi ble based on patient's age to complete this topic HPV VACCINE Aged Out No longer eligi ble based on patient's age to complete this topic MENINGOCOCCAL (Group B) VACC INE SHARED DECISION-MAKING Aged Out No longer eligibl e based on patient's age to complete this topic MENINGOCOCCAL GROUPS A/C/Y/W VACCINE Aged Out No longer eligible b ased on patient's age to complete this topic Insurance [address] [place] [address] MEDICARE [facility] [place] [address]
--- OUTSIDE RECORDS SUMMARY | 2024-12-25 15:27 | XMS_ITS | Clinical Summary ---
Author Organization [employer] Address [address] [facility] Attn: Epic Prelude ADT [place] [address] Care Team Providers Care Turner Splitter Machine Operator Name Role Phone Unavailable Primary Care Provider Unavailabl e Allergies Active Allergy Reactions Criticality Noted Date Comments Amlodipine Besylate Rash,Swelling Low 05/20/2009 Meperidine Hives High 02/11/2009 Medications lancets 30 gauge 1 Each by [facility].(Non-Nehemias g; Combo Route) route daily For true [...] Comments Blood Pressure 130/78 04/21/2018 2:08 PM BAG SEALER Pulse 103 04/21/2018 2:08 PM BAG SEALER Temperature 36.5 C (97.7 F) 04/21/2018 2:08 PM BAG SEALER Respiratory Rate 18 03/27/2018 1:35 PM BAG SEALER Oxygen Saturation - - Inhaled Oxygen Concentration - - Weight 101.5 kg (223 lb 12.8 oz) 04/21/2018 2:08 PM BAG SEALER Height 160 cm (5' 3) 04/21/2018 2:08 PM BAG SEALER Body Mass Index 39.64 04/21/2018 2:08 PM BAG SEALER Plan of Treatment Health Maintenance Due Date [...]
--- NOTE | 2024-12-25 15:59 | ED.ABDPAIN ---
HPI - Abdominal Pain General Chief Complaint: Abdominal Pain Stated Complaint: constipation Last BM 12/20 Time Seen by Provider: 12/25/24 14:50 Source: patient Mode of arrival: ambulatory Limitations: no limitations History of Present Illness HPI narrative: Patient is an 84 y/o female, with PMH of partial colectomy, who presents to the ED with c/o constipation. Patient reports she had a bowel movement on Saturday, but has not passed much stool since then. Does not believe she is passing gas either. She has noticed some stool with wiping and has been dark in color. She is not on any anticoagulation. She takes MiraLax daily and has been taking laxatives without improvement. She complains of rectal pain. Denies significant abdominal pain. Denies nausea, vomiting, fevers. Related Data Home Medications ?Medication ?Instructions ?Recorded ?Confirmed ?Last Taken ?Type aspirin 81 mg tablet 81 mg PO DAILY 12/04/19 09/03/24 Unknown History losartan 100 mg tablet 100 mg PO DAILY 12/04/19 09/03/24 Unknown History acetaminophen 500 mg tablet 500 mg PO Q6H PRN 11/06/21 09/03/24 Unknown History (Tylenol Extra Strength) cholecalciferol (vitamin D3) 1,250 1,250 mcg PO MONTHLY 11/06/21 09/03/24 Unknown History mcg (50,000 unit) oral wafer metoprolol succinate 25 mg 25 mg PO DAILY 11/06/21 09/03/24 Unknown History tablet,extended release 24 hr polyethalen glycol BYMOUTH 11/06/21 09/03/24 Unknown History gabapentin 600 mg tablet 600 mg PO QHS 08/06/22 09/03/24 Unknown History vitamin B complex-vitamin B12 drp sublingual 10/23/23 09/03/24 Unknown History 1,200 mcg/mL sublingual drops cyclosporine 0.05 % eye drops 1 drp EACH EYE Q12H 09/03/24 09/03/24 Unknown History (Restasis MultiDose) carbidopa 25 mg-levodopa 100 mg 3 tablet PO QHS 09/04/24 Unknown History tablet primidone 50 mg tablet 50 mg PO BID 09/04/24 Unknown History Allergies Allergy/AdvReac Type Severity Reaction Status Date / Time amlodipine Allergy Intermediate rashdalton Verified 12/25/24 14:58 ng meperidine Allergy Unknown Rashswelli Verified 12/25/24 14:58 ng Review of Systems Review of Systems: All systems reviewed & are unremarkable except as noted in HPI. All systems reviewed & are unremarkable except as noted in HPI and below [facility] Past Medical History Medical History Postmenopausal Subclinical hyperthyroidism Prediabetes Low TSH level Breast CA FH: prostate cancer Hypertension Diabetes Muscle spasm Restless leg syndrome Thyroid disease Inflammatory arthritis Degenerative joint disease (DJD) of lumbar spine (~2019) Hypertension Arthritis Cardiac arrest Diabetes Allergies Hammer toe Surgical History Surgical History Presence of artificial knee joint, bilateral Status post laser cataract surgery of both eyes History of lumbar fusion History of colon surgery History of total left knee replacement (TKR) S/P left rotator cuff repair History of total right knee replacement H/O breast reconstruction H/O lumpectomy H/O total hysterectomy Family History Family History Mother Heart disease Thyroid disease Arthritis Father Heart disease Cancer Grandparent Cancer Sibling Degenerative disc disease Arthritis Other Depression Hypertension Social History Social History Smoking status: Never smoker Alcohol intake: never Substance use: never Lack of Transportation: No Lack of Food: Never True Current Housing: I Have Housing Concerned About Future Housing: No Difficulty Paying Gas/Electric Bills: No Difficulty Paying for Meds: No Currently Unemployed: No Education: High School Diploma/GED Difficulty w/ Childcare or Family Care: No Occupation/Education: retired Gender identity (if verbalized by the patient): Female Exam Narrative: GENERAL: Elderly, obese with BMI of 35.5, non-toxic, in no acute distress. HEAD: Normocephalic, atraumatic. RESPIRATORY: Airway patent, respirations nonlabored. Clear to auscultation bilaterally, no rales, rhonchi, wheezing. CARDIOVASCULAR: Regular rate and rhythm without murmurs, rubs, or gallops. ABDOMINAL: Soft, minimal tenderness throughout lower abdomen, no rebound, nondistended. Slightly hyperactive BS. RECTAL: Normal rectal tone. Small external hemorrhoid, no evidence of thrombosis or bleeding. Stool brown, guaiac negative. MUSCULOSKELETAL: Moves all extremities. No gross deformities. SKIN: Warm, dry, normal color. NEURO: A&O X3. Speech clear. Cranial nerves II-XII grossly intact. Steady gait. No ataxic movements. PSYCHIATRIC: Appropriate mood and affect. Normal interaction. Course Vital Signs Vital signs: Vital Signs Temperature 98.8 F 12/25/24 13:52 Pulse Rate 93 12/25/24 13:52 Respiratory Rate 18 12/25/24 13:52 Blood Pressure 142/96 H 12/25/24 13:52 Pulse Oximetry 95 12/25/24 13:52 Oxygen Delivery Room Air 12/25/24 13:52 Temperature 98.8 F 12/25/24 13:52 Pulse Rate 85 12/25/24 18:50 Respiratory Rate 20 12/25/24 18:50 Blood Pressure 151/133 H 12/25/24 14:55 Pulse Oximetry 97 12/25/24 18:50 Oxygen Delivery Room Air 12/25/24 13:52 MDM - Abdominal Pain MDM Narrative Medical decision making narrative: Patient presented to ED with constipation, rectal pain. Vital signs are stable upon arrival. Patient mildly uncomfortable appearing. Laboratory studies without leukocytosis or anemia. Stable electrolytes. Stable kidney function. Lactic acid within normal range at 1.4. Normal LFTs and lipase. UA is clear, no signs of infection. CT scan of abdomen/pelvis was obtained and showing probable fecal impaction with proctitis. No obstruction. No other concerning features. Discussed lab and imaging findings with patient. YENI performed in the ED and stool ball in the rectal vault is very soft, easily broken up. Stool is guaiac negative. Patient is agreeable to attempting enema. This was performed in the ED, however she was not able to hold fluid very long. Was able to pass gas, but did not have large bowel movement. Discussed continued constipation management at home. Patient is agreeable to this. Discussed increasing fluid intake, high-fiber diet, MiraLax/Dulcolax. Discussed close follow-up with PCP. Given strict return precautions. Patient in agreement with plan. Discharged in stable condition. Medical Records Attestation: I reviewed the patient's medical records. Lab Data Attestation: I reviewed the patient's lab results. 12/25/24 16:06 12/25/24 16:06 Labs: Lab Results 12/25/24 12/25/24 Range/Units 15:57 16:06 WBC 7.2 (4.5-10.0) K/mm3 RBC 4.99 (4.2-5.4) M/mm3 Hgb 15.2 H (12.0-15.0) g/dL Hct 47.7 H (37.0-47.0) % MCV 95.6 (80-100) fl MCH 30.5 (26-34) pg MCHC 31.9 L (32-36) g/dl RDW 14.4 (11.5-14.5) % Plt Count 216 (150-375) k/mm3 MPV 9.5 (7.4-10.4) fl Immature Gran % (Auto) 0.3 (0-0.5) % Neut % (Auto) 69.7 (45.5-73.1) % Lymph % (Auto) 21.1 (18.3-44.2) % [place] % (Auto) 7.1 (2.6-8.5) % Eos % (Auto) 1.1 (0-4.4) % Baso % (Auto) 0.7 (0.2-1.2) % Lymph # (Auto) 1.51 (0.9-3.2) K/mm3 [place] # (Auto) 0.5 (0.1-0.6) K/mm3 Eos # (Auto) 0.1 (0-0.3) K/mm3 Baso # (Auto) 0.1 (0.0-0.1) K/mm3 Abs Immat Gran (auto) 0.02 (0.00-0.031) K/mm3 Absolute Neuts (auto) 5.0 (1.3-6.7) K/mm3 Absolute Nucleated RBC 0.000 (0.0-0.012) K/mm3 Nucleated RBC % 0.0 (0.0-0.2) % Sodium 138 (137-145) mmol/L Potassium 4.3 (3.4-5.0) mmol/L Chloride 103 (98-107) mmol/L Carbon Dioxide 27 (22-30) mmol/L Anion Gap 8 (4-12) mmol/L BUN 13 D (7-17) mg/dL Creatinine 0.72 (0.7-1.0) mg/dL Estim Creat Clear Calc 56 ml/min Estimated GFR > 60 (59 - ) Glucose 101 (65-110) mg/dL Lactic Acid 1.4 (0.7-2.0) mmol/L Calcium 9.9 (8.4-10.2) mg/dL Total Bilirubin 0.4 (0.2-1.3) mg/dL AST 25 (14-36) U/L ALT 15 (6-35) U/L Alkaline Phosphatase 75 (38-126) U/L Total Protein 7.3 (6.3-8.2) g/dL Albumin 4.4 (3.5-5.1) g/dL Lipase 139 (23-300) U/L Urine Color Yellow (Yellow) Urine Appearance Clear (Clear) Urine pH 7.5 (5.0-9.0) Ur Specific Elizabeth 1.011 (1.001-1.035) Urine Protein Negative (Negative) mg/dL Urine Glucose (UA) Negative (Negative) mg/dL Urine Ketones Negative (Negative) mg/dL Ur Blood (Man) Negative (Negative) Urine Nitrate Negative (Negative) Urine Bilirubin Negative (Negative) Urine Urobilinogen 0.2 (<2.0) mg/dL Leukocyte Esterase Rfl Negative (Negative) ALEXA/UL Imaging Data Attestation: I personally reviewed and interpreted this imaging study as follows: Radiologist's impression: ITS Impressions Abdomen/Pelvis CT 12/25/24 17:27 IMPRESSION: 1. Probable fecal impaction with proctitis. Incidental findings above Discharge Plan Discharge Clinical Impression: Fecal impaction Constipation Qualifiers: Constipation type: unspecified constipation type Qualified Code(s): K59.00 - Constipation, unspecified Patient Disposition: Home Condition: Stable Instructions: Antibiotic Form, Constipation (ED), High Fiber Diet (ED) Additional Instructions: Recommend MiraLax and Dulcolax up to twice daily over the next 1 week for constipation. If you develop diarrhea, you may decrease this to once per day or every other day. Stay very well hydrated. Recommend plenty of fluids. Recommend high-fiber diet. Follow-up closely with your primary care doctor and/or GI for further evaluation. Call office to make appointment if needed. Return to the ED if you experience worsening or severe symptoms, severe constipation, severe pain, unable to keep down food or drink, fevers, rectal bleeding, dark black stool, or any other symptoms of concern. Patient Language: Bengali Prescriptions: New bisacodyl [Dulcolax (bisacodyl)] 5 mg tablet,delayed release (DR/EC) 5 mg PO BID PRN (Reason: constipation) Qty: 20 0RF No Action metoprolol succinate 25 mg tablet extended release 24 hr 25 mg PO DAILY acetaminophen [Tylenol Extra Strength] 500 mg tablet 500 mg PO Q6H PRN Rx Instructions: Take 4-6 prn polyethalen glycol BYMOUTH Restasis MultiDose 0.05 % drops 1 drp EACH EYE Q12H gabapentin 600 mg tablet 600 mg PO QHS vitamin B complex-vit B12 1,200 mcg/mL drops sublingual losartan 100 mg tablet 100 mg PO DAILY aspirin 81 mg tablet 81 mg PO DAILY cholecalciferol (vitamin D3) 1,250 mcg (50,000 unit) wafer 1,250 mcg PO MONTHLY methimazole 5 mg tablet See Rx Instructions .ROUTE .COMPLEX Qty: 70 3RF Dose Instruction: TAKE 1 TABLET BY MOUTH EVERY DAY FOR 5 DAYS A WEEK, SKIP SATURDAY AND SUNDAYS Rx Instructions: TAKE 1 TABLET BY MOUTH EVERY DAY FOR 5 DAYS A WEEK, SKIP SATURDAY AND SUNDAYS carbidopa-levodopa 25-100 mg tablet 3 tablet PO QHS primidone 50 mg tablet 50 mg PO BID Rx Instructions: Take 2 in morning and 2 at night Follow-up/Referrals: Kush,JENNIFER Montez [Primary Care Provider] Hitesh Paige MD [Physician, Gastroenterology] Referral Note: GI Time of Disposition: 19:37
[2024-12-25 16:03] LABS: Add Urine Microscopic? NO; Appearance Urine Clear (Clear); Glucose Urine UA Negative (Negative); Leukocyte Esterase Ur Negative LEU/UL (Negative); Nitrate Urine Negative (Negative); Specific Grav Ur 1.011 (1.001-1.035)
[2024-12-25 16:13] LABS: Hematocrit 47.7 % (37.0-47.0); Hemoglobin 15.2 g/dL (12.0-15.0); Immature Granulocyte Percent A 0.3 % (0-0.5); Lymphocytes Absolute Auto 1.51 K/mm3 (0.9-3.2); Mean Corpuscular HGB Conc 31.9 g/dl (32-36); Mean Corpuscular Hemoglobin 30.5 pg (26-34); Mean Corpuscular Volume 95.6 fl (80-100); Nucleated Red Blood Cells Absolute Auto 0.000 K/mm3 (0.0-0.012); Nucleated Red Blood Cells Perc 0.0 % (0.0-0.2); Platelet Count Result 216 k/mm3 (150-375); Red Blood Count 4.99 M/mm3 (4.2-5.4); White Blood Count 7.2 K/mm3 (4.5-10.0)
[2024-12-25 16:25] LABS: Alanine Aminotransferase 15 U/L (6-35); Albumin Level 4.4 g/dL (3.5-5.1); Alkaline Phosphatase 75 U/L (38-126); Anion Gap 8 mmol/L (4-12); Aspartate Amino Transferase 25 U/L (14-36); Bilirubin,Total 0.4 mg/dL (0.2-1.3); Blood Urea Nitrogen 13 mg/dL (7-17); Calcium 9.9 mg/dL (8.4-10.2); Carbon Dioxide 27 mmol/L (22-30); Chloride 103 mmol/L (98-107); Estimated CRCL calculation 56 ml/min; Estimated Glomerular Filt Rate > 60; Glucose 101 mg/dL (65-110); Lipase 139 U/L (23-300); Potassium 4.3 mmol/L (3.4-5.0); Sodium 138 mmol/L (137-145); Total Protein 7.3 g/dL (6.3-8.2)
[2024-12-25] MEDS: ACETAMINOPHEN 500 MG TABLET 1000 MG PO (17:13)
== END 2024-12-25 19:55 | disposition home or self-care (01) ==
PROVIDERS: Emergency Provider Physician Assistant; PCP Nurse Practitioner Family
DX: K56.41 Fecal impaction (principal); E11.9 Type 2 diabetes mellitus without complications; I10 Essential (primary) hypertension
CPT/HCPCS: 36415; 74177; 80053; 81003; 83605; 83690; 85025; 99284; A9270; Q9967